=== PATIENT | male | born 1980 | race African-American/Black ===

== ENCOUNTER → 2016-03-21 | Outpatient (CLI) | payer BC, OTHER | LOC: HYPER 06:56 | DX: S31.20XA Unspecified open wound of penis, initial encounter (principal); E66.01 Morbid (severe) obesity due to excess calories; S31.109A Unspecified open wound of abdominal wall, unspecified quadrant without penetration into peritoneal cavity, initial encounter; F17.210 Nicotine dependence, cigarettes, uncomplicated; Z72.89 Other problems related to lifestyle; N48.1 Balanitis; X58.XXXA Exposure to other specified factors, initial encounter; Y93.89 Activity, other specified; Y92.89 Other specified places as the place of occurrence of the external cause; Y99.8 Other external cause status ==

== ENCOUNTER 2019-05-20 11:08 | Emergency (ER) | payer BC, OTHER ==
[~2019-05-20] VITALS: Ht 185.4 cm; Wt 154.2 kg
[2019-05-20 11:14] VITALS: BP 134/84
[2019-05-20] MEDS ORDERED: NAPROSYN500 MG PO (11:45)
[2019-05-20] MEDS ORDERED: NORFLEX100 MG PO (11:45)
== END 2019-05-20 11:58 | disposition home or self-care (01) ==
LOC: ER 11:08
DX: S39.012A Strain of muscle, fascia and tendon of lower back, initial encounter (principal); F17.210 Nicotine dependence, cigarettes, uncomplicated; Z90.49 Acquired absence of other specified parts of digestive tract; X50.1XXA Overexertion from prolonged static or awkward postures, initial encounter; Y93.89 Activity, other specified; Y92.002 Bathroom of unspecified non-institutional (private) residence as the place of occurrence of the external cause; Y99.8 Other external cause status

== ENCOUNTER 2019-12-07 08:59 | Emergency (ER) | payer BC, OTHER ==
[~2019-12-07] VITALS: Ht 185.4 cm; Wt 145.2 kg
[~2019-12-07 08:59] MED LIST: NAPROSYN500 MG PO; NORFLEX100 MG PO
[2019-12-07 09:00] VITALS: BP 135/80
[2019-12-07] MEDS ORDERED: PENICILLIN VK500 MG PO (09:54)
== END 2019-12-07 10:02 | disposition home or self-care (01) ==
LOC: ER 08:59
DX: J02.0 Streptococcal pharyngitis (principal); F17.210 Nicotine dependence, cigarettes, uncomplicated; Z90.49 Acquired absence of other specified parts of digestive tract; Z79.899 Other long term (current) drug therapy